=== PATIENT | male | born 1985 | race Caucasian/White ===

== ENCOUNTER 2024-05-31 12:36 | Emergency (ER) | payer BC, OTHER ==
[~2024-05-31] VITALS: Ht 185.4 cm; Wt 98.0 kg
[2024-05-31 12:48] VITALS: TEMP 98.8; O2SAT 99
[2024-05-31 12:52] VITALS: O2SAT 96
[2024-05-31] MEDS ORDERED: DICYCLOMINE 10 MG/5 ML ORAL SYR PO STA (14:04)
[2024-05-31] MEDS: ONDANSETRON 4MG ODT PO STA (14:25)
[2024-05-31] MEDS: DICYCLOMINE HCL 10MG CAPSULE PO NR (14:25)
[2024-05-31] MEDS: MAGNESIUM/ALUMINUM HYDROXIDE/SIMETHICONE 30ML UDC PO STA (14:25)
[2024-05-31 14:26] VITALS: BP 127/76; PULSE 61; RESP 16
[2024-05-31] MEDS: KETOROLAC 30MG/ML VIAL IM ONE (14:26)
[2024-05-31 14:37] LABS: CLARITY URINE CLEAR (CLEAR); COLOR URINE YELLOW (YELLOW); GLUCOSE URINE NEGATIVE (NEGATIVE); KETONES URINE NEGATIVE (NEGATIVE); LEUKOCYTE ESTERASE URINE TRACE (NEGATIVE); NITRITE URINE NEGATIVE (NEGATIVE); OCCULT BLOOD URINE NEGATIVE (NEGATIVE); PROTEIN URINE TRACE (NEGATIVE); SPECIFIC GRAVITY URINE 1.025 (1.005-1.030)
[2024-05-31 14:52] LABS: BACTERIA URINE FEW; RBC URINE NONE SEEN /hpf (0-2); SQUAMOUS EPITHELIAL CELL URINE NONE SEEN /lpf (RARE/1+); WBC URINE 0-2 /hpf (0-2); YEAST URINE NONE SEEN
[2024-05-31 14:59] LABS: BASOPHILS % 0.2 % (0.0-2.0); EOSINOPHILS % 3.4 % (0.0-5.0); HEMOGLOBIN. 14.1 g/dL (14.0-18.0); MEAN CORPUSCULAR HEMOGLOBIN 28.7 pg (28.0-32.0); MEAN CORPUSCULAR HGB CONC 31.9 g/dL (31.0-37.0); MEAN PLATELET VOLUME 9.1 fl (7.4-10.4); MONOCYTES % 5.8 % (2.0-8.0); NEUTROPHILS % 80.6 % (40.0-76.0); PLATELET 301 x1000/uL (130-400); RED BLOOD CELL COUNT 4.89 mill/uL (4.7-6.1); RED CELL DISTRIBUTION WIDTH 14.1 % (11.6-14.6); WHITE BLOOD COUNT 13.3 x1000/uL (4.5-11.0)
[2024-05-31 15:01] LABS: CHLORIDE 106 mEq/L (98-107); POTASSIUM 4.1 mEq/L (3.5-5.1); SODIUM 138 mEq/L (136-145)
[2024-05-31 15:02] LABS: CARBON DIOXIDE 27 mEq/L (21-32)
[2024-05-31 15:03] LABS: CALCIUM 9.6 mg/dL (8.7-10.4)
[2024-05-31 15:07] LABS: CREATININE 1.1 mg/dL (0.6-1.3); GLUCOSE 106 mg/dL (70-105)
[2024-05-31 15:08] LABS: UREA NITROGEN BLOOD 14 mg/dL (9-23)
[2024-05-31 15:09] LABS: ALANINE AMINOTRANSFERASE 21 IU/L (10-49); ALBUMIN 4.7 g/dL (3.2-4.8); ASPARTATE AMINOTRANSFERASE 23 IU/L (<34)
[2024-05-31 15:10] LABS: BILIRUBIN DIRECT 0.2 mg/dL (<=3.0); BILIRUBIN TOTAL 0.7 mg/dL (0.1-1.0); PROTEIN TOTAL 7.6 g/dL (6.0-8.3)
[2024-05-31 15:11] LABS: ETHANOL BLOOD < 10 mg/dL (<10)
[2024-05-31] MEDS ORDERED: IBUP-2029 MT (16:02)
[2024-05-31] MEDS ORDERED: FAMO-135 MT (16:02)
== END 2024-05-31 16:19 | disposition home or self-care (01) ==
LOC: ER 13:00
DX: K80.64 Calculus of gallbladder and bile duct with chronic cholecystitis without obstruction (principal)
CPT/HCPCS: 80076; 80048; 81003; 80320; 83690; 85025; 36415; 76705; 96372; 99285; Q0162; J1885; G0480